=== PATIENT | male | born 1995 | race Two or more races ===

== ENCOUNTER 2017-03-14 22:45 | Emergency (ER) | payer MEDICAID, OTHER ==
[~2017-03-14] VITALS: Ht 162.6 cm; Wt 122.5 kg
--- NOTE | 2017-03-14 23:07 | NUR ---
pt ambulated to room with steady gait. Pt c/o left sided chest pressure radiating down left arm with sob. EKG obtained, pt placed on monitor NSR. Pt resting in position of comfort for self, awaiting further eval.
--- NOTE | 2017-03-14 23:23 | NUR ---
Pt seen by Dr. Edwards. Pt medicated for discomfort will monitor for effects of medication.
[2017-03-14 23:26] LABS: BASOPHILS % (AUTO) 0.4 % (0.0-2.0); EOSINOPHILS # (AUTO) 0.1 K/uL (0.0-0.7); EOSINOPHILS % (AUTO) 1.6 % (0.0-7.0); HEMATOCRIT 43.3 % (40-50); HEMOGLOBIN 14.7 G/DL (14.0-18.0); LYMPHOCYTES # (AUTO) 2.7 K/UL (0.8-4.8); LYMPHOCYTES % (AUTO) 30.5 % (20.5-51.5); MEAN CORPUSCULAR HGB CONC 34 g/dL (32.0-37.0); MEAN CORPUSCULAR VOLUME 91.5 FL (82.0-92.0); MONOCYTES # (AUTO) 0.8 K/UL (0.1-1.30); MONOCYTES % (AUTO) 8.9 % (0.0-11.0); NEUTROPHILS # (AUTO) 5.3 K/UL (1.8-8.9); NEUTROPHILS % (AUTO) 58.6 % (38.5-71.5); PLATELET COUNT (AUTO) 219 K/UL (150-450); RED BLOOD CELL COUNT(AUTO) 4.73 MIL/UL (4.7-6.1); WHITE BLOOD COUNT (AUTO) 8.9 K/UL (4.0-11.2)
[2017-03-14] MEDS ORDERED: KETOROLAC TROMETHAMINE 30 MG INJ IVP ONE (23:30)
[2017-03-14 23:32] LABS: CREATININE 1.2 mg/dL (0.6-1.3); POTASSIUM 3.9 mmol/L (3.5-5.1)
[2017-03-14] MEDS ORDERED: KETOROLAC TROMETHAMINE 30 MG INJ ONE (23:36)
--- NOTE | 2017-03-14 23:53 | NUR ---
pt conts to c/o 910 chest pain but sts left arm is better. Dr. Edwards notified, awaiting further orders.
--- NOTE | 2017-03-15 01:00 | NUR ---
Pt resting in position of comfort for self. Pt conts to c/o chest pressure, sts is tolerable at this time. No further complaints noted. Family remains at bedside
--- NOTE | 2017-03-15 03:20 | NUR ---
Repeat troponin was normal. Pt stable for discharge per Dr. Edwards. IV dc'd, catheter intact. Drsg applied. No problem snoted to site. Pt given ACi. Pt verbalized understanding of dc instructions. Pt ambulated out of er with steady gait.
[2017-03-15 05:22] VITALS: BP 148/73
== END 2017-03-15 03:20 | disposition home or self-care (01) ==
LOC: ER 22:45
DX: R07.9 Chest pain, unspecified (principal)
CPT/HCPCS: 36415; 70030-TC; 71010; 85025; 85730; 93005; A4663; J1885